=== PATIENT | male | born 1930 | race Caucasian/White ===

== ENCOUNTER 2018-08-25 13:14 | Inpatient (IN) | payer MEDICARE ==
[2018-08-25] MEDS ORDERED: Aspirin 325 MG TAB ONE (14:04)
[2018-08-25] MEDS ORDERED: Aspirin 300 MG Suppository ONE (14:35)
[2018-08-25] MEDS ORDERED: Artificial Tears 18 DROP/0.9 ML EA EYE PRN (15:29)
[2018-08-25] MEDS ORDERED: Diabetic Tussin 200 MG/10 ML UDCUP PO PRN (15:29)
[2018-08-25] MEDS ORDERED: Bisacodyl 5 MG TAB PO PRN (15:29)
[2018-08-25] MEDS ORDERED: Sodium Chloride 0.65% Nasal 44 ML BOT EA NARE PRN (15:29)
[2018-08-25] MEDS ORDERED: Loperamide HCl 2 MG CAP PO PRN (15:29)
[2018-08-25] MEDS ORDERED: hydrALAZINE 20 MG/ML VIAL SLOW IVP PRN (15:29)
[2018-08-25] MEDS ORDERED: Senokot S 8.6-50 MG TAB PO PRN (15:29)
[2018-08-25] MEDS ORDERED: Bisacodyl 10 MG SUPP PR PRN (15:29)
[2018-08-25] MEDS ORDERED: Ondansetron PF 4 MG/2 ML Vial IVP PRN (15:29)
[2018-08-25] MEDS ORDERED: Eucerin (Mineral Oil/Petrolatum,White) 30 gm Jar TOP PRN (15:29)
[2018-08-25] MEDS ORDERED: Acetaminophen 650 MG Suppository PR PRN (15:29)
[2018-08-25] MEDS ORDERED: Ondansetron ODT 4 MG TAB PO PRN (15:29)
[2018-08-25] MEDS ORDERED: Acetaminophen 325 MG TAB PO PRN (15:29)
[2018-08-25] MEDS ORDERED: HYDROcodone/Acetaminophen 5/325 mg Tablet PO PRN (15:29)
--- NOTE | 2018-08-25 15:50 | HP ---
PRIMARY CARE PHYSICIAN: Farrukh Mccracken MD REASON FOR ADMISSION: Transferred from [facility] for acute CVA. HISTORY OF PRESENT ILLNESS: An 88-year-old male, who has underlying history of hypertension, atrial fibrillation, who was initially evaluated at [facility] Emergency Room. The patient was normal this morning at 10:30, he fell down all of suddenly when he was talking to family member and then he was not able to speak and he was not able to lift his left upper and lower extremity. He was taken to local emergency room at 11:08 by paramedics. He was evaluated there. He had CT of brain, which was negative for any acute intracranial process. The patient had CT angiography, which showed right carotid occluded and left carotid 96% to 99% occlusion. His routine blood test was unremarkable. As per report, the patient is not on any chronic anticoagulation therapy. As per report, the patient started improving neurologically and ER doctor spoke with Dr. Forbes and the patient was not a candidate for tPA. As the patient has carotid occlusion, Dr. Farrukh Davies was also notified from our emergency room and as per him, no need of doing acute intervention. When I saw this patient at that time, the patient does have left-sided neglect. He still has a slurred speech and he has dense upper and lower extremity weakness on the left side. Family member is present. Before all this, the patient was completely independent. He was able to do all routine activities of his life. He was only taking aspirin for his atrial fibrillation. PAST MEDICAL HISTORY: Atrial fibrillation, hypertension, prostate disease. PAST SURGICAL HISTORY: Reviewed and negative. PAST PSYCHIATRIC HISTORY: Reviewed and negative. SOCIAL HISTORY: The patient is . He lives at home with family. No history of tobacco, alcohol, or illicit drug abuse. FAMILY HISTORY: No strong family history of premature coronary artery disease, stroke, or cancer. ALLERGIES: NO KNOWN DRUG ALLERGY. CURRENT HOME MEDICATIONS: 1. Coreg 6.25 mg b.i.d. 2. Aspirin 81 mg p.o. daily. 3. Flomax 0.4 mg p.o. daily. REVIEW OF SYSTEMS: CONSTITUTIONAL: Negative for weight loss or gain, ability to conduct usual activities. SKIN: Negative for rash, itching. EYES: Negative for double vision, pain. ENT/MOUTH: Negative for nose bleeding, neck stiffness, pain, tenderness. CARDIOVASCULAR: Negative for palpitations, dyspnea on exertion, orthopnea. RESPIRATORY: Negative for shortness of breath, wheezing, cough, hemoptysis, fever or night sweats. GASTROINTESTINAL: Negative for poor appetite, abdominal pain, heartburn, nausea, vomiting, constipation, or diarrhea. GENITOURINARY: Negative for urgency, frequency, dysuria, nocturia. MUSCULOSKELETAL: Negative for pain, swelling. NEUROLOGIC/PSYCHIATRIC: Negative for anxiety, depression. ALLERGY/IMMUNOLOGIC: Negative for skin rash, bleeding tendency. Please see my HPI for pertinent positive and negative, all other review of systems reviewed and negative. EMERGENCY ROOM COURSE: Reviewed. The patient is given aspirin 325 mg. PHYSICAL EXAMINATION: VITAL SIGNS: Currently blood pressure 176/118, pulse 93 and irregular, respiratory rate 18, temperature 98.0, saturation 99% on room air. Weight not measured yet. GENERAL: The patient is currently alert, awake, follows simple command, no obvious acute distress. HEENT: Head normocephalic and atraumatic. Eyes: Pupils round, reactive to light. Extraocular muscle intact. ENT: Oropharynx within normal limits. Moist mucous membranes. No oral lesion. No pharyngeal erythema. No exudate. NECK: Supple. No JVD. No thyromegaly. No carotid bruit. No jugular venous distention. LUNGS: Clear to auscultation without any rhonchi or rales. CARDIAC: S1 and S2, irregular. No murmur. No gallop. No rub. ABDOMEN: Soft. Bowel sounds present. Nontender. Nondistended. No organomegaly. No mass. No suprapubic tenderness. BACK: Unremarkable. No CVA tenderness. EXTREMITIES: Upper extremity: Passive movement of all joints are normal. Lower extremity: No edema. Good distal pulsation. SKIN: No skin rash. HEMATOLOGICAL SYSTEM: No lymphadenopathy. NEUROLOGIC: The patient does have left-sided facial droop, left-sided neglect, sensory deficit as well as motor deficit with power almost 1/5 on both upper and lower extremity with dysarthria, plantar extensor on the left side, right side within normal limits. SIGNIFICANT LABORATORY DATA: CBC: WBC 7.7, hemoglobin 11.8, platelet 213. INR 1.0. BMP: Sodium 140, potassium 4.5, chloride 107, carbon dioxide 23, anion gap 14, BUN 32.6, creatinine 1.5, glucose 102, calcium 9.36. LFT: AST 18, ALT 15, alkaline phosphatase 73, albumin 4.1. CK 51, CK-MB 1.5, troponin less than 0.010. CT brain done, negative for any acute intracranial process. CT angiography did show right carotid occlusion and left carotid almost 96% to 99% occlusion. Chest x-ray, no acute cardiopulmonary process. ASSESSMENT AND PLAN: 1. Acute right-sided MCA territory cerebrovascular accident. This patient has left-sided neglect, left-sided upper and lower extremity weakness, dysarthria, facial droop, as well as plantar extensor on the left side, all consistent with acute cerebrovascular accident, most likely explained by his underlying history of chronic atrial fibrillation and not on anticoagulation therapy as well as bilateral carotid stenosis. The patient has 100% occlusion of the right internal carotid artery. As per Neurosurgeon, the patient was deemed not a good candidate for tPA therapy. At this point, the patient will be admitted to Stroke Floor. PT, OT, Speech Therapy will be consulted. Neurology will be consulted. The patient will need chronic anticoagulation therapy for his underlying atrial fibrillation. We will continue with aspirin 325 mg p.o. daily. We will start Lipitor 40 mg p.o. at bedtime. The patient will need eventually rehab placement. Diet will be initiated when the patient is successful with bedside swallow evaluation. The patient will need Speech Therapy. We will monitor on telemetry floor. We will obtain MRI brain and echocardiography as a part of stroke workup. We will also check homocysteine, RPR tomorrow and we will also check lipid profile tomorrow. Plan of care extensively discussed with the family member. 2. Chronic atrial fibrillation, rate controlled. The patient will need long-term anticoagulation therapy. We will wait for Neurology and then we will consider starting Eliquis therapy before discharge. Meanwhile, we will continue with aspirin 325 mg p.o. daily. 3. Hypertension. Our goal is to keep blood pressure around 160 to 170s. If blood pressure is super high, then we will consider using p.r.n. basis blood pressure medication as needed only. We will continue Coreg 6.25 mg p.o. b.i.d. as per home dosage. 4. Benign enlargement of prostate. We will continue Flomax 0.4 mg p.o. daily. 5. Chronic kidney disease, stage 3. We will monitor renal function. We will repeat labs tomorrow. 6. Deep venous thrombosis prophylaxis. Lovenox 40 mg subcu daily. 7. Gastrointestinal prophylaxis. Pepcid 20 mg p.o. b.i.d. CODE STATUS: The patient is full code. The patient's is surrogate decision maker. DISPOSITION PLAN: Based on clinical course, we are expecting the patient's stay in hospital more than 2 midnights. Plan of care discussed with the patient and family member at bedside in the emergency room and answered all their questions. Job ID: [id number]
[2018-08-25] MEDS: Sodium Chloride 0.9% 1,000 ML IV SCH (17:40)
[2018-08-25 18:02] VITALS: BMI 25.7
[2018-08-25] MEDS: Carvedilol 6.25 MG TAB PO SCH (18:41)
[2018-08-25] MEDS ORDERED: Prevnar 13-Val Conj/PF 0.5 ML SYRINGE IM ONE (21:00)
[2018-08-25] MEDS: Atorvastatin Calcium 40 MG TAB PO SCH (21:52)
[2018-08-25] MEDS: Famotidine/PF 20 mg/2ml Vial SLOW IVP SCH (21:53)
[2018-08-25] MEDS: Famotidine 20 MG TAB PO SCH (21:53)
--- NOTE | 2018-08-25 23:28 | CON ---
DATE OF CONSULTATION: HISTORY OF PRESENT ILLNESS: Mr. Cr is an 88-year-old gentleman who presented to the [place] ER today with slurred speech and hemiparesis on the left side. He has had some improvement in his leg motor function, but the arm is still hemiparetic. His speech remains slurred. He has a history of chronic atrial fibrillation. He has not been on any anticoagulation due to the patient's refusal to take it in the past. There is a report from both Dr. Cooley and from the emergency department of CT angiogram of the neck showing various degrees of carotid disease-an occluded right carotid and a greater than 90% left carotid. The films are currently unavailable for me to see in [employer] or inside of [facility]. In discussion with the patient's family, he has no history of stroke. He has no history of cardiac disease other than chronic atrial fibrillation. He has no peripheral vascular history. Currently, he is resting on the stroke unit without complaint. PAST MEDICAL HISTORY: Chronic atrial fibrillation. PAST SURGICAL HISTORY: None. CURRENT MEDICATIONS: Aspirin 81 mg b.i.d. ALLERGIES: NONE. REVIEW OF SYSTEMS: Not performed. PHYSICAL EXAMINATION: GENERAL: This is an elderly gentleman, resting comfortably on the stroke unit without current complaint. VITAL SIGNS: Heart rate is 90, blood pressure is 170/110. HEENT: Sclerae nonicteric. Pupils are equal and round bilaterally. NECK: Supple. There is no adenopathy. I cannot auscultate a bruit in either neck. CHEST: Clear bilaterally. HEART: Rhythm is irregularly irregular. ABDOMEN: Soft and nontender. EXTREMITIES: No edema. VASCULAR: He has palpable radial and femoral pulses bilaterally. ASSESSMENT AND PLAN: I need to review his films. I will check with Radiology and see if they have access here that I can not obtain and will discuss the findings and plans with the family at that time. Addendum: I reviewed his CTA with Dr Burgos in radiology. Right ICA is occluded into the skull. LICA is critically stenosed at the bifurcation with only an atretic ICA present from the bulb into the skull. He has non surgical disease. He should be managed on aspirin for his cerebrovascular disease, and a discussion with the family should be made in regards to anticoagulation for his chronic atrial fibrillation Job ID: [id number] [facility]
[2018-08-26 02:06] LABS: Bilirubin Negative (Negative); Blood, Urine Negative (Negative); Clarity CLEAR (Clear); Glucose, Urine (Dipstick) Negative (Negative); Leukocyte Negative (Negative); Nitrite Negative (Negative); Protein, Urine (Dipstick) Negative (Neg-Trace); Specific Gravity, Urine 1.031 (1.002-1.036); Urobilinogen 0.2 mg/dL (0.2-1.0)
[2018-08-26 05:12] LABS: #Eosinphils 0.1 thou/uL (0.0-0.7); #Monocytes 0.8 thou/uL (0.11-0.59); #Neutrophils 8.9 thou/uL (1.40-6.50); %Basophils 0.3 % (0.0-1.0); %Eosinophils 0.9 % (0.0-10.0); %Lymphocytes 16.7 % (21.0-51.0); %Monocytes 6.9 % (0.0-10.0); %Neutrophils 75.2 % (42.0-75.0); Hemoglobin 12.5 g/dL (14.0-18.0); Mean Corpuscular HGB CONC 32.5 g/dL (32.0-36.0); Mean Corpuscular Hemoglobin 29.8 pg (27.0-31.0); Mean Corpuscular Volume 91.7 fL (78.0-98.0); Mean Platelet Volume 7.2 fL (7.4-10.4); Platelet Count 231 thou/uL (130-400); RBC Distribution Width 12.7 % (11.5-14.5); Red Blood Cell (RBC) Count 4.21 mill/uL (4.70-6.10); White Blood Cell (WBC) Count 11.8 thou/uL (4.8-10.8)
[2018-08-26 05:17] LABS: Prothrombin Time 13.4 SEC (12.0-14.7)
[2018-08-26 05:42] LABS: ALT (SGPT) 13 U/L (8-55); AST (SGOT) 20 U/L (5-34); Albumin 4.1 g/dL (3.4-4.8); Alkaline Phosphatase 73 U/L (40-150); Anion Gap 15 mmol/L (10-20); BUN (Urea Nitrogen) 27 mg/dL (8.4-25.7); Bilirubin, Total 0.8 mg/dL (0.2-1.2); Calc. Creatinine Clearance 42 mL/min (70-130); Calcium 9.7 mg/dL (7.8-10.44); Carbon Dioxide 22 mmol/L (23-31); Cardiac Risk 4.1 (Less than 4.5); Chloride 105 mmol/L (98-107); Cholesterol 236 mg/dl (< 200 Desired); Estimated GFR-MDRD 55; Glucose 112 mg/dL (83-110); HDL Cholesterol 58 mg/dL (>60 Neg Risk); LDL Cholesterol, Calculated 163 mg/dL; Potassium 3.8 mmol/L (3.5-5.1); Protein, Total 7.1 g/dL (5.8-8.1); Sodium 138 mmol/L (136-145); Triglycerides 77 mg/dL (Less than 150)
[2018-08-26 06:18] LABS: Syphilis Antibody Nonreactive (Nonreactive); Syphilis Antibody Index 0.05 S/CO (<1.00 Non-Reactive)
[2018-08-26] MEDS: Aspirin 300 MG Suppository PR SCH (08:46)
[2018-08-26] MEDS: Enoxaparin Sodium 40 MG/0.4 ML SYRINGE SC SCH (08:47)
[2018-08-26] MEDS: Carvedilol 6.25 MG TAB PO SCH ×2 (08:47→14:57)
[2018-08-26] MEDS: Tamsulosin HCl 0.4 MG CAP PO SCH (08:48)
[2018-08-26] MEDS: Aspirin 325 MG TAB PO SCH (08:48)
--- NOTE | 2018-08-26 10:21 | PDOC.PN ---
- Subjective Encounter Start Date: 08/26/18 Encounter Start Time: 09:00 -: old records requested/rev pt has improvement in his left side weakness, family bedside Patient seen and examined. No new complaints. No overnight events - Objective Resuscitation Status - Order Detail: 08/25/18 14:33 Resuscitation Status Routine Resuscitation Status: FULL: Full Resuscitation MAR Reviewed: Yes Vital Signs & Weight: Vital Signs (12 hours) Temp Pulse Resp BP BP Pulse Ox 08/26/18 08:47 159/80 H 08/26/18 08:00 97.9 F 88 14 159/80 H 97 08/26/18 07:10 95 08/26/18 03:55 98.5 F 102 H 20 158/86 H 97 08/26/18 00:20 93 191/106 H 08/25/18 23:20 97.9 F 103 H 20 191/106 H 95 Weight Weight 159 lb 6 oz I&O: 08/25/18 08/26/18 08/27/18 06:59 06:59 06:59 Intake Total 600 Output Total 800 Balance -200 Result Diagrams: 08/26/18 04:47 08/26/18 04:47 EKG Reviewed by me: Yes (afib) Phys Exam - Physical Examination Constitutional: NAD HEENT: PERRLA, moist MMs, sclera anicteric Neck: no JVD, supple Respiratory: no wheezing, no rales, no rhonchi Cardiovascular: no significant murmur, irregular Gastrointestinal: soft, non-tender, no distention, positive bowel sounds Musculoskeletal: no edema, pulses present left side 3/5 and right side normal, 7th umn palsy noted, dysarthria Lymphatic: no nodes Psychiatric: normal affect, A&O x 3 Skin: no rash, normal turgor Dx/Plan (1) Acute right MCA stroke Code(s): I63.511 - CEREB INFRC D/T UNSP OCCLS OR STENOS OF RIGHT MID CEREB ART Status: Acute (2) BPH (benign prostatic hyperplasia) Code(s): N40.0 - BENIGN PROSTATIC HYPERPLASIA WITHOUT LOWER URINRY TRACT SYMP Status: Chronic (3) Carotid stenosis Code(s): I65.29 - OCCLUSION AND STENOSIS OF UNSPECIFIED CAROTID ARTERY Status : Chronic Qualifiers: Laterality: bilateral Qualified Code(s): I65.23 - Occlusion and stenosis of bilateral carotid arteries (4) Chronic atrial fibrillation Code(s): I48.2 - CHRONIC ATRIAL FIBRILLATION Status: Chronic (5) CKD (chronic kidney disease) stage 3, GFR 30-59 ml/min Code(s): N18.3 - CHRONIC KIDNEY DISEASE, STAGE 3 (MODERATE) Status: Chronic (6) Dyslipidemia Code(s): E78.5 - HYPERLIPIDEMIA, UNSPECIFIED Status: Chronic (7) Hypertension Code(s): I10 - ESSENTIAL (PRIMARY) HYPERTENSION Status: Chronic - Plan cont current plan of care, plan discussed w/ family, PT/OT, social work lecturer, speech therapy, DVT proph w/lovenox * continue aspirin, lipitor, coreg * he will need chronic anticoagulation before discharge * risk and benefit discussed about anticoagulation and afib * neurology will see * today MRI, echo * discussed with family bedside * medication reviewed as below * symptomatic treatment. Review of Systems - Review of Systems Constitutional: negative: fever, chills, sweats, weakness, malaise, other Eyes: negative: Pain, Vision Change, Conjunctivae Inflammation, Eyelid Inflammation, Redness, Other ENT: negative: Ear Pain, Ear Discharge, Nose Pain, Nose Discharge, Nose Congestion, Mouth Pain, Mouth Swelling, Throat Pain, Throat Swelling, Other Respiratory: negative: Cough, Dry, Shortness of Breath, Hemoptysis, SOB with Excertion, Pleuritic Pain, Sputum, Wheezing Cardiovascular: negative: chest pain, palpitations, orthopnea, paroxysmal nocturnal dyspnea, edema, light headedness, other Gastrointestinal: negative: Nausea, Vomiting, Abdominal Pain, Diarrhea, Constipation, Melena, Hematochezia, Other Genitourinary: negative: Dysuria, Frequency, Incontinence, Hematuria, Retention , Other Musculoskeletal: negative: Neck Pain, Shoulder Pain, Arm Pain, Back Pain, Hand Pain, Leg Pain, Foot Pain, Other Skin: negative: Rash, Lesions, [place], Bruising, Other Neurological: Weakness, Change in Speech. negative: Numbness, Incoordination, Confusion, Seizures, Other - Medications/Allergies Allergies/Adverse Reactions: Allergies Allergy/AdvReac Type Severity Reaction Status Date / Time No Known Drug Allergies Allergy Verified 08/25/18 16:26 Medications: Current Medications Acetaminophen (Tylenol) 650 mg PO Q4H PRN PRN Reason: Headache/Fever/Mild Pain (1-3) Acetaminophen (Tylenol) 650 mg MS Q4H PRN PRN Reason: Headache/Fever/Mild Pain (1-3) Hydrocodone Bitart/Acetaminophen ([place] 5/325) 1 tab PO Q4H PRN PRN Reason: Moderate Pain (4-6) Artificial Tears (Tears Naturale) 2 drop EA EYE PRN PRN PRN Reason: Dry Eyes Aspirin (Aspirin) 300 mg MS DAILY [facility] Last Admin: 08/26/18 08:46 Dose: Not Given Aspirin (Aspirin) 325 mg PO DAILY [facility] Last Admin: 08/26/18 08:48 Dose: 325 mg Atorvastatin Calcium (Lipitor) 40 mg PO HS [facility] Last Admin: 08/25/18 21:52 Dose: 40 mg Bisacodyl (Dulcolax) 10 mg MS DAILYPRN PRN PRN Reason: Constipation Bisacodyl (Dulcolax) 10 mg PO DAILYPRN PRN PRN Reason: Constipation Carvedilol (Coreg) 6.25 mg PO BID-[facility] Last Admin: 08/26/18 08:47 Dose: 6.25 mg Enoxaparin Sodium (Lovenox) 40 mg SC 0900 [facility] Last Admin: 08/26/18 08:47 Dose: 40 mg Famotidine (Pepcid) 20 mg SLOW IVP Q24HR [facility] Last Admin: 08/25/18 21:53 Dose: 20 mg Famotidine (Pepcid) 20 mg PO Q24HR [facility] Last Admin: 08/25/18 21:53 Dose: Not Given Guaifenesin (Robitussin Sf) 200 mg PO Q4H PRN PRN Reason: Cough Hydralazine HCl (Apresoline) 10 mg SLOW IVP Q4H PRN PRN Reason: SBP > 180 and HR < 70 Last Admin: 08/26/18 00:20 Dose: 10 mg Sodium Chloride (Normal Saline 0.9%) 1,000 mls @ 50 mls/hr IV .Q20H [facility] Last Admin: 08/25/18 17:40 Dose: 1,000 mls Loperamide HCl (Imodium) 2 mg PO PRN PRN PRN Reason: Diarrhea/Loose Stools Mineral Oil/White Petrolatum (Eucerin Cream) 0 gm TOP BIDPRN PRN PRN Reason: Dry Skin Ondansetron HCl (Zofran Odt) 4 mg PO Q6H PRN PRN Reason: Nausea/Vomiting Ondansetron HCl (Zofran) 4 mg IVP Q6H PRN PRN Reason: Nausea/Vomiting Senna/Docusate Sodium (Senokot S) 2 tab PO BID PRN PRN Reason: Constipation Sodium Chloride ([place] Nasal [place] 0.65%) 0 ml EA NARE QIDPRN PRN PRN Reason: Nasal Congestion Sodium Chloride (Flush - Normal Saline) 10 ml IVF PRN PRN PRN Reason: Saline Flush Tamsulosin HCl (Flomax) 0.4 mg PO DAILY [facility] Last Admin: 08/26/18 08:48 Dose: 0.4 mg
[2018-08-26] MEDS: Sodium Chloride 0.9% 1,000 ML IV SCH (12:58)
--- NOTE | 2018-08-26 14:04 | MRI ---
MRI BRAIN: Date: 08/26/18 PROVIDED CLINICAL HISTORY: Stroke, generalized weakness. FINDINGS: Comparison with CT brain dated 08/26/18. There is restricted diffusion involving the right lentiform nucleus, right caudate, and right interna l capsule. There is patchy restricted diffusion present within the cortex of the right frontal and pa rietal regions in the distribution of the right middle cerebral artery. There are punctate foci of bl ooming on the gradient sequence in the region of the caudate infarct. The ventricular system appears normal. There is no mass effect or midline shift. There is absence of normal flow-related signal void involving the left internal carotid artery. Appropriate flow-voids are seen from the remainder of th e major intracranial vessels. The extracranial soft tissues and calvarial marrow signal appear unremarkable. IMPRESSION: 1. Findings compatible with recent infarction in the distribution of the right middle cerebral arter y as described above. Blooming artifact associated with caudate infarction could reflect petechial mi crohemorrhage. 2. Absence of flow-related signal within the left ICA, compatible with occlusion. POS: YOOK
--- NOTE | 2018-08-26 15:52 | CON ---
DATE OF CONSULTATION: 08/26/2018 CHIEF COMPLAINT: Possible CVA. HISTORY OF PRESENT ILLNESS: The patient's gave the medical history. His son was there during the event. The patient was picking up a towel from the floor and fell down. He did not pass out. He was helped and he was going to finish what he was doing. He kind of felt he was pacing around and then they helped him sit down and they saw his face droop. After they went to the ER is when he developed left-sided weakness. Due to improvement in his weakness, no IV tPA was given per chart. In the mornings, he is now able to lift his left arm. Yesterday, he could not move his arm much and he had improvement in his left leg weakness while in the ER itself. PREVIOUS MEDICAL HISTORY: Prostate cancer for several years. He has been on injections every 6 months. He also has atrial fibrillation. Benign prostatic hypertrophy and he has cataracts and macular degeneration as well. CURRENT MEDICATIONS: He takes, 1. Coreg. 2. Aspirin. 3. Tamsulosin. PAST SURGICAL HISTORY: None. FAMILY HISTORY: Father at 89 following an SD. He had irregular heart rate. He has four brothers and five sisters. Two brothers and a sister had CVA. Mother at 94. SOCIAL HISTORY: He is a retired [employer]. He was in [employer] and he is a retired yan. He lives with his at home. REVIEW OF SYSTEMS: PULMONARY: Normal. CARDIAC: Positive for irregular heart rate. GENITOURINARY: Positive for prostate problems and increased frequency of urination. GASTROINTESTINAL: Negative for any diarrhea, vomiting. DERMATOLOGIC: Negative. LABORATORY DATA: His current laboratory workup shows white count 11.8, hemoglobin 12.5, hematocrit 38.6, platelet count is 231. Sodium 138, potassium 3.8, chloride 105, bicarb 22, BUN 27, creatinine 1.25, cholesterol 236, LDL 163, HDL 58, homocysteine 7.71. Syphilis antibodies are negative. His CT of the head report was obtained from the nurse and it was read out to me sulcal prominence. No intracranial hemorrhage. No acute stroke and sulcal prominence is consistent with age. He had CT angiogram, which showed right ICA stenosis of 100%, left ICA greater than 19% stenosis. His MRI scan of the brain was pending initially this morning. At the time of this dictation, it has been reported and the MRI shows recent infarction in the distribution of right middle cerebral artery with restricted diffusion involving right lentiform nucleus, right cardiac and right internal capsule. PHYSICAL EXAMINATION: VITAL SIGNS: Blood pressure is 159/80, pulse rate is 88, temperature 97.9. GENERAL APPEARANCE: Well-built, well-nourished gentleman, who appears comfortable. CHEST: Clear vesicular breathing. CARDIOVASCULAR: S1, S2 heard. No murmurs. ABDOMEN: Soft. NEUROLOGICAL EXAMINATION: He was oriented to time, not to place, but oriented to person. Cranial nerves, pupils are 3 mm bilaterally, reactive to light and he has normal sensation of face bilaterally. Facial droop on the left side and tongue midline. Motor bulk normal. Tone normal. Strength is 5/5 on the right side in upper and lower extremities; the left side, 3/5 proximal and distal 1/5 in the left upper extremity. Left lower extremity 3/5 bilaterally in distal and proximal muscle groups. Muscle groups tested on deltoid, biceps, triceps, wrist extension and flexion, finger extension and flexion bilaterally. Sensory exam, normal to touch and proprioception was difficult to evaluate. Cerebellar, normal [id number] on the left side and overall, he seems to be somewhat sleepy during this visit and looks a bit tired. IMPRESSION: The patient is an 88-year-old man with history of a left-sided weakness yesterday and he has difficulties with his prostate and atrial fibrillation at baseline and on CT angiogram, which may be concerning that he has bilateral ICA stenosis and now based on the MRI, he has right MCA occlusion causing his left-sided face, arm, leg weakness. This is all likely due to significant cerebrovascular disease. At this time, his examination shows left-sided weakness and left facial droop consistent with his event in the right MCA. TREATMENT RECOMMENDATIONS: I would note that Vascular Surgery was consulted and Dr. Davies has stated this patient is not a surgical candidate. He will probably need long-term anticoagulation for his cardiac status. Please repeat the CT within [address] remains stable, we can consider anticoagulation. Please consult Cardiology as well on this patient. Neurology will see him as needed. Job ID: [id number]
[2018-08-26] MEDS: Atorvastatin Calcium 40 MG TAB PO SCH (20:32)
[2018-08-26] MEDS: Famotidine 20 MG TAB PO SCH (20:33)
[2018-08-26] MEDS: Famotidine/PF 20 mg/2ml Vial SLOW IVP SCH (20:33)
[2018-08-27] MEDS ORDERED: Albuterol Sulfate 1.25 MG/3 ML NEB ONE (05:49)
[2018-08-27] MEDS: Sodium Chloride 0.9% 1,000 ML IV SCH ×2 (06:08→10:43)
[2018-08-27 07:22] LABS: #Eosinphils 0.1 thou/uL (0.0-0.7); #Lymphocytes 2.5 thou/uL (1.20-3.40); #Monocytes 0.9 thou/uL (0.11-0.59); #Neutrophils 5.2 thou/uL (1.40-6.50); %Basophils 0.5 % (0.0-1.0); %Eosinophils 1.6 % (0.0-10.0); %Lymphocytes 28.5 % (21.0-51.0); %Monocytes 9.8 % (0.0-10.0); %Neutrophils 59.6 % (42.0-75.0); Hemoglobin 11.4 g/dL (14.0-18.0); Mean Corpuscular HGB CONC 32.7 g/dL (32.0-36.0); Mean Corpuscular Hemoglobin 29.7 pg (27.0-31.0); Mean Corpuscular Volume 90.9 fL (78.0-98.0); Mean Platelet Volume 7.2 fL (7.4-10.4); Platelet Count 203 thou/uL (130-400); RBC Distribution Width 12.5 % (11.5-14.5); Red Blood Cell (RBC) Count 3.85 mill/uL (4.70-6.10); White Blood Cell (WBC) Count 8.7 thou/uL (4.8-10.8)
[2018-08-27 07:42] LABS: Anion Gap 13 mmol/L (10-20); BUN (Urea Nitrogen) 23 mg/dL (8.4-25.7); Calc. Creatinine Clearance 35 mL/min (70-130); Calcium 9.4 mg/dL (7.8-10.44); Carbon Dioxide 24 mmol/L (23-31); Chloride 104 mmol/L (98-107); Estimated GFR-MDRD 44; Glucose 94 mg/dL (83-110); Potassium 4.1 mmol/L (3.5-5.1); Sodium 137 mmol/L (136-145)
[2018-08-27] MEDS: Aspirin 325 MG TAB PO SCH (08:35)
[2018-08-27] MEDS: Carvedilol 6.25 MG TAB PO SCH ×2 (08:35→17:16)
[2018-08-27] MEDS: Tamsulosin HCl 0.4 MG CAP PO SCH (08:35)
[2018-08-27] MEDS: Aspirin 300 MG Suppository PR SCH (08:36)
[2018-08-27] MEDS: Enoxaparin Sodium 40 MG/0.4 ML SYRINGE SC SCH (08:36)
--- NOTE | 2018-08-27 10:19 | PDOC.PN ---
- Subjective Encounter Start Date: 08/27/18 Encounter Start Time: 07:00 Pt has improvement in weakness in leg but still weakness in left upper extremity persists no overnight event, no chest pain, no fever, has limited liquid intake - Objective Resuscitation Status - Order Detail: 08/25/18 14:33 Resuscitation Status Routine Resuscitation Status: FULL: Full Resuscitation MAR Reviewed: Yes Vital Signs & Weight: Vital Signs (12 hours) Temp Pulse Pulse Resp BP BP BP 08/27/18 08:50 98 156/84 H 08/27/18 08:35 171/82 H 08/27/18 08:31 08/27/18 07:36 97.8 F 90 18 171/82 H 08/27/18 04:00 98.3 F 93 16 161/81 H 08/26/18 23:58 99.4 F 71 16 153/71 H Pulse Ox Pulse Ox 08/27/18 08:50 96 08/27/18 08:35 08/27/18 08:31 98 08/27/18 07:36 98 08/27/18 04:00 96 08/26/18 23:58 97 Weight Weight 159 lb 6 oz I&O: 08/26/18 08/27/18 08/28/18 06:59 06:59 06:59 Intake Total 1500 Output Total 2000 Balance -500 Result Diagrams: 08/27/18 06:56 08/27/18 06:56 Radiology Reviewed by me: Yes (MRI, echo report noted) EKG Reviewed by me: Yes (afib) Phys Exam - Physical Examination Constitutional: NAD HEENT: PERRLA, moist MMs, sclera anicteric Neck: no JVD, supple Respiratory: no wheezing, no rales, no rhonchi Cardiovascular: irregular SM+ lower sternal border Gastrointestinal: soft, non-tender, no distention, positive bowel sounds Musculoskeletal: no edema, pulses present left side weakness more on upper extrimity Lymphatic: no nodes Psychiatric: normal affect, A&O x 3 Skin: no rash, normal turgor Dx/Plan (1) Acute right MCA stroke Code(s): I63.511 - CEREB INFRC D/T UNSP OCCLS OR STENOS OF RIGHT MID CEREB ART Status: Acute (2) Moderate tricuspid regurgitation Code(s): I07.1 - RHEUMATIC TRICUSPID INSUFFICIENCY Status: Acute (3) BPH (benign prostatic hyperplasia) Code(s): N40.0 - BENIGN PROSTATIC HYPERPLASIA WITHOUT LOWER URINRY TRACT SYMP Status: Chronic (4) CKD (chronic kidney disease) stage 3, GFR 30-59 ml/min Code(s): N18.3 - CHRONIC KIDNEY DISEASE, STAGE 3 (MODERATE) Status: Chronic (5) Carotid stenosis Code(s): I65.29 - OCCLUSION AND STENOSIS OF UNSPECIFIED CAROTID ARTERY Status : Chronic Qualifiers: Laterality: bilateral Qualified Code(s): I65.23 - Occlusion and stenosis of bilateral carotid arteries (6) Chronic atrial fibrillation Code(s): I48.2 - CHRONIC ATRIAL FIBRILLATION Status: Chronic (7) Dyslipidemia Code(s): E78.5 - HYPERLIPIDEMIA, UNSPECIFIED Status: Chronic (8) Hypertension Code(s): I10 - ESSENTIAL (PRIMARY) HYPERTENSION Status: Chronic - Plan cont current plan of care, plan discussed w/ family, PT/OT, social sciences professor, speech therapy * continue stroke team evaluation * today repeat CT brain as per neurology * will consider elliquis before discharge * will need rehab on discharge * encourage oral intake * medication reviewed as below * symptomatic treatment. * increase coreg * continue IVF today Review of Systems - Review of Systems Eyes: negative: Pain, Vision Change, Conjunctivae Inflammation, Eyelid Inflammation, Redness, Other ENT: negative: Ear Pain, Ear Discharge, Nose Pain, Nose Discharge, Nose Congestion, Mouth Pain, Mouth Swelling, Throat Pain, Throat Swelling, Other Respiratory: negative: Cough, Dry, Shortness of Breath, Hemoptysis, SOB with Excertion, Pleuritic Pain, Sputum, Wheezing Cardiovascular: negative: chest pain, palpitations, orthopnea, paroxysmal nocturnal dyspnea, edema, light headedness, other Gastrointestinal: negative: Nausea, Vomiting, Abdominal Pain, Diarrhea, Constipation, Melena, Hematochezia, Other Genitourinary: negative: Dysuria, Frequency, Incontinence, Hematuria, Retention , Other Musculoskeletal: negative: Neck Pain, Shoulder Pain, Arm Pain, Back Pain, Hand Pain, Leg Pain, Foot Pain, Other Skin: negative: Rash, Lesions, Austyn, Bruising, Other Neurological: Weakness. negative: Numbness, Incoordination, Change in Speech, Confusion, Seizures, Other - Medications/Allergies Allergies/Adverse Reactions: Allergies Allergy/AdvReac Type Severity Reaction Status Date / Time No Known Drug Allergies Allergy Verified 08/25/18 16:26 Medications: Current Medications Acetaminophen (Tylenol) 650 mg PO Q4H PRN PRN Reason: Headache/Fever/Mild Pain (1-3) Acetaminophen (Tylenol) 650 mg [place] Q4H PRN PRN Reason: Headache/Fever/Mild Pain (1-3) Hydrocodone Bitart/Acetaminophen ([place] 5/325) 1 tab PO Q4H PRN PRN Reason: Moderate Pain (4-6) Artificial Tears (Tears Naturale) 2 drop EA EYE PRN PRN PRN Reason: Dry Eyes Aspirin (Aspirin) 300 mg [place] DAILY [facility] Last Admin: 08/27/18 08:36 Dose: Not Given Aspirin (Aspirin) 325 mg PO DAILY [facility] Last Admin: 08/27/18 08:35 Dose: 325 mg Atorvastatin Calcium (Lipitor) 40 mg PO HS [facility] Last Admin: 08/26/18 20:32 Dose: 40 mg Bisacodyl (Dulcolax) 10 mg [place] DAILYPRN PRN PRN Reason: Constipation Bisacodyl (Dulcolax) 10 mg PO DAILYPRN PRN PRN Reason: Constipation Carvedilol (Coreg) 6.25 mg PO BID-[facility] Last Admin: 08/27/18 08:35 Dose: 6.25 mg Enoxaparin Sodium (Lovenox) 40 mg SC 0900 [facility] Last Admin: 08/27/18 08:36 Dose: 40 mg Famotidine (Pepcid) 20 mg SLOW IVP Q24HR [facility] Last Admin: 08/26/18 20:33 Dose: Not Given Famotidine (Pepcid) 20 mg PO Q24HR [facility] Last Admin: 08/26/18 20:33 Dose: 20 mg Guaifenesin (Robitussin Sf) 200 mg PO Q4H PRN PRN Reason: Cough Hydralazine HCl (Apresoline) 10 mg SLOW IVP Q4H PRN PRN Reason: SBP > 180 and HR < 70 Last Admin: 08/26/18 00:20 Dose: 10 mg Loperamide HCl (Imodium) 2 mg PO PRN PRN PRN Reason: Diarrhea/Loose Stools Mineral Oil/White Petrolatum (Eucerin Cream) 0 gm TOP BIDPRN PRN PRN Reason: Dry Skin Ondansetron HCl (Zofran Odt) 4 mg PO Q6H PRN PRN Reason: Nausea/Vomiting Ondansetron HCl (Zofran) 4 mg IVP Q6H PRN PRN Reason: Nausea/Vomiting Senna/Docusate Sodium (Senokot S) 2 tab PO BID PRN PRN Reason: Constipation Sodium Chloride ([place] Nasal [place] 0.65%) 0 ml EA NARE QIDPRN PRN PRN Reason: Nasal Congestion Sodium Chloride (Flush - Normal Saline) 10 ml IVF PRN PRN PRN Reason: Saline Flush Tamsulosin HCl (Flomax) 0.4 mg PO DAILY GUILLERMO Last Admin: 08/27/18 08:35 Dose: 0.4 mg
--- NOTE | 2018-08-27 12:13 | CON ---
DATE OF CONSULTATION: 08/27/2018 REASON FOR CONSULTATION: Need for full anticoagulation. HISTORY OF PRESENT ILLNESS: Mr. Cr is a pleasant 88-year-old white gentleman, who comes to the hospital for symptoms concerning for stroke. MRI confirmed these findings, an MCA distribution CVA. He has chronic atrial fibrillation and has been on Coumadin in the past several years ago, but he has stopped to use and is now refusing Coumadin given how cumbersome this medication is. He never had any bleeding issues or frequent falls to stop the medication. Cardiology is being consulted for further evaluation of this. He was also found to have severe peripheral vascular disease, extracranial with his carotids, one being occluded the other one being severely stenosed but so small that is not a surgical candidate. Currently, Mr. Cr is slowly getting better from his stroke symptoms. PAST MEDICAL HISTORY: 1. Chronic atrial fibrillation. 2. Hypertension. 3. Prostate disease. PAST SURGICAL HISTORY: None. FAMILY HISTORY: No early coronary artery disease. SOCIAL HISTORY: No alcohol, tobacco, or drugs. OUTPATIENT MEDICATIONS: 1. Coreg 6.25 b.i.d. 2. Aspirin 81 a day. 3. Flomax 0.4 mg a day. ALLERGIES: NO KNOWN DRUG ALLERGIES. REVIEW OF SYSTEMS: A 12-point review of systems was done and was found to be negative unless stated in the history of present illness. PHYSICAL EXAMINATION: VITAL SIGNS: Temperature 97.8, pulse 90, respiratory rate 18, sat is 98% on room air, blood pressure 156/84. GENERAL: Awake, alert, and oriented x3. No distress. HEENT: Normocephalic and atraumatic. NECK: Supple. LUNGS: Clear. CARDIOVASCULAR: S1, S2. No S3 or S4. No murmur. Irregularly irregular, heart rate in the 60s. ABDOMEN: Soft. Positive bowel sounds. EXTREMITIES: Trace edema. SKIN: Warm and dry. LABORATORY DATA: Laboratory work was reviewed. CBC with a white count of 8.7, hemoglobin down to 8.4, hematocrit 35, platelet count 203. Coags were normal. Chemistries were unremarkable except for creatinine of 1.25, up to 1.51 today. UA was unremarkable. Serology was negative for syphilis, IgG, IgM antibodies. DIAGNOSTIC DATA: EKG was reviewed. Atrial fibrillation, rate controlled. Echocardiogram was reviewed. He has an EF of 55% to 60% with mild aortic insufficiency, mild to moderate MR, and moderate to severe TR. ASSESSMENT: 1. Chronic atrial fibrillation. 2. Acute cerebrovascular accident. 3. Severe carotid disease. 4. Mild aortic insufficiency. PLAN: 1. He is certainly a candidate for full anticoagulation. I had a long conversation with him and his about why he stopped it and the new options we have and the newer agents that do not require all the monitoring and changing of the doses. He is much more agreeable to getting these new medications as long as they are affordable. We cannot start it just yet secondary to the small amount of hemorrhage is seen on the brain MRI on his current stroke. We will wait at least a month before starting full anticoagulation. Otherwise, he is agreeable to starting Eliquis and finding out if it is going to be covered by his insurance. We will give him a coupon for the first free 30 days and then we will see him back in about a month to see if this is going to be feasible or not. He may opt for just an aspirin eventually. 2. For his PVD, he needs to be on aspirin and statin for life. 3. Currently, blood pressure we have permissive hypertension. However, we will have to control it much better eventually. Thank you for letting me to participate in the care of your patient. We will follow. Job ID: [id number]
--- NOTE | 2018-08-27 16:11 | CT ---
CT BRAIN NONCONTRAST: DATE: 08/27/18 TIME: 1219 hours HISTORY: 88-year-old male with acute stroke follow-up. COMPARISON: Noncontrast CT of 08/25/18. FINDINGS: There is a new finding of cytotoxic edema causing effacement of sulcal markings and loss of salguero-whit e junction, involving right lateral suprasylvian frontal lobe cortex and underlying subcortical white matter. This also involves the entire right basal ganglia and the right caudate head. Small patchy f oci of hyperdensity in the right caudate head correspond to the small amounts of acute hemorrhage in that location noted on the MRI of 08/26/18. There are additional numerous tiny foci of hemorrhage in the right putamen and globus pallidus on that MRI, which are difficult to appreciate on this CT. The cytotoxic edema partially effaces the frontal horn of the right lateral ventricle. Much more superiorly, moderate size region of cytotoxic involvement of a right lateral gyrus is more apparent than the involvement of other areas. This probably represents post central gyrus. A small po rtion of what may be precentral gyrus is also involved. Calvarium is intact. There is no midline shif t. Basal cisterns remain patent. IMPRESSION: 1. Evolving moderate-large acute infarction of the right middle cerebral artery territory involving right frontal lobe and some portions of right parietal lobe. 2. This includes lenticulostriate branch territory involvement of infarction of essentially the enti re right corpus striatum. 3. Small amounts of acute hemorrhagic conversion of the right corpus striatum portion of the infarct ion. [place] POS: UMA
[2018-08-27] MEDS: Famotidine 20 MG TAB PO SCH (21:30)
[2018-08-27] MEDS: Atorvastatin Calcium 40 MG TAB PO SCH (21:30)
[2018-08-28] MEDS: Famotidine/PF 20 mg/2ml Vial SLOW IVP SCH (01:55)
[2018-08-28] MEDS: Aspirin 325 MG TAB PO SCH (09:53)
[2018-08-28] MEDS: Carvedilol 6.25 MG TAB PO SCH ×2 (09:53→17:22)
[2018-08-28] MEDS: Enoxaparin Sodium 40 MG/0.4 ML SYRINGE SC SCH (09:53)
[2018-08-28] MEDS: Tamsulosin HCl 0.4 MG CAP PO SCH (09:53)
[2018-08-28] MEDS: Aspirin 300 MG Suppository PR SCH (09:53)
[2018-08-28] MEDS: Sodium Chloride 0.9% 1,000 ML IV SCH (09:54)
--- NOTE | 2018-08-28 10:10 | PDOC.PN ---
- Subjective Encounter Start Date: 08/28/18 Encounter Start Time: 07:10 Patient seen and examined. No new complaints. No overnight events - Objective Resuscitation Status - Order Detail: 08/25/18 14:33 Resuscitation Status Routine Resuscitation Status: FULL: Full Resuscitation MAR Reviewed: Yes Vital Signs & Weight: Vital Signs (12 hours) Temp Pulse Resp BP BP Pulse Ox 08/28/18 09:53 156/76 H 08/28/18 08:00 98.3 F 81 20 156/99 H 96 08/28/18 04:00 98.6 F 87 18 144/77 H 96 08/28/18 00:00 99.0 F 84 19 151/71 H 95 Weight Weight 159 lb 6 oz I&O: 08/27/18 08/28/18 08/29/18 06:59 06:59 06:59 Intake Total 1500 790 Output Total 2000 900 Balance -500 -110 Result Diagrams: 08/27/18 06:56 08/27/18 06:56 EKG Reviewed by me: Yes (afib) Phys Exam - Physical Examination Constitutional: NAD HEENT: PERRLA, moist MMs, sclera anicteric Neck: no JVD, supple Respiratory: no wheezing, no rales, no rhonchi Cardiovascular: no significant murmur, irregular Gastrointestinal: soft, non-tender, no distention, positive bowel sounds Musculoskeletal: no edema, pulses present left side weakness UE>LE Lymphatic: no nodes Psychiatric: normal affect, A&O x 3 Skin: no rash, normal turgor Dx/Plan (1) Acute right MCA stroke Code(s): I63.511 - CEREB INFRC D/T UNSP OCCLS OR STENOS OF RIGHT MID CEREB ART Status: Acute (2) Moderate tricuspid regurgitation Code(s): I07.1 - RHEUMATIC TRICUSPID INSUFFICIENCY Status: Acute (3) BPH (benign prostatic hyperplasia) Code(s): N40.0 - BENIGN PROSTATIC HYPERPLASIA WITHOUT LOWER URINRY TRACT SYMP Status: Chronic (4) CKD (chronic kidney disease) stage 3, GFR 30-59 ml/min Code(s): N18.3 - CHRONIC KIDNEY DISEASE, STAGE 3 (MODERATE) Status: Chronic (5) Carotid stenosis Code(s): I65.29 - OCCLUSION AND STENOSIS OF UNSPECIFIED CAROTID ARTERY Status : Chronic Qualifiers: Laterality: bilateral Qualified Code(s): I65.23 - Occlusion and stenosis of bilateral carotid arteries (6) Chronic atrial fibrillation Code(s): I48.2 - CHRONIC ATRIAL FIBRILLATION Status: Chronic (7) Dyslipidemia Code(s): E78.5 - HYPERLIPIDEMIA, UNSPECIFIED Status: Chronic (8) Hypertension Code(s): I10 - ESSENTIAL (PRIMARY) HYPERTENSION Status: Chronic - Plan cont current plan of care, plan discussed w/ family, PT/OT, aids social worker * because of haemorrhagic conversion, will need to hold on chronic anticoagulation * medication reviewed as below * symptomatic treatment * cardiology recommendation noted * updated to family. * will dc when arranged rehab Review of Systems - Review of Systems ENT: negative: Ear Pain, Ear Discharge, Nose Pain, Nose Discharge, Nose Congestion, Mouth Pain, Mouth Swelling, Throat Pain, Throat Swelling, Other Respiratory: negative: Cough, Dry, Shortness of Breath, Hemoptysis, SOB with Excertion, Pleuritic Pain, Sputum, Wheezing Cardiovascular: negative: chest pain, palpitations, orthopnea, paroxysmal nocturnal dyspnea, edema, light headedness, other Gastrointestinal: negative: Nausea, Vomiting, Abdominal Pain, Diarrhea, Constipation, Melena, Hematochezia, Other Genitourinary: negative: Dysuria, Frequency, Incontinence, Hematuria, Retention , Other Musculoskeletal: negative: Neck Pain, Shoulder Pain, Arm Pain, Back Pain, Hand Pain, Leg Pain, Foot Pain, Other Skin: negative: Rash, Lesions, Austyn, Bruising, Other - Medications/Allergies Allergies/Adverse Reactions: Allergies Allergy/AdvReac Type Severity Reaction Status Date / Time No Known Drug Allergies Allergy Verified 08/25/18 16:26 Medications: Current Medications Acetaminophen (Tylenol) 650 mg PO Q4H PRN PRN Reason: Headache/Fever/Mild Pain (1-3) Acetaminophen (Tylenol) 650 mg [place] Q4H PRN PRN Reason: Headache/Fever/Mild Pain (1-3) Hydrocodone Bitart/Acetaminophen ([place] 5/325) 1 tab PO Q4H PRN PRN Reason: Moderate Pain (4-6) Artificial Tears (Tears Naturale) 2 drop EA EYE PRN PRN PRN Reason: Dry Eyes Aspirin (Aspirin) 300 mg [place] DAILY [facility] Last Admin: 08/28/18 09:53 Dose: Not Given Aspirin (Aspirin) 325 mg PO DAILY [facility] Last Admin: 08/28/18 09:53 Dose: 325 mg Atorvastatin Calcium (Lipitor) 40 mg PO HS [facility] Last Admin: 08/27/18 21:30 Dose: 40 mg Bisacodyl (Dulcolax) 10 mg [place] DAILYPRN PRN PRN Reason: Constipation Bisacodyl (Dulcolax) 10 mg PO DAILYPRN PRN PRN Reason: Constipation Carvedilol (Coreg) 12.5 mg PO BID-[facility] Last Admin: 08/28/18 09:53 Dose: 12.5 mg Enoxaparin Sodium (Lovenox) 40 mg SC 0900 [facility] Last Admin: 08/28/18 09:53 Dose: 40 mg Famotidine (Pepcid) 20 mg SLOW IVP Q24HR [facility] Last Admin: 08/28/18 01:55 Dose: Not Given Famotidine (Pepcid) 20 mg PO Q24HR [facility] Last Admin: 08/27/18 21:30 Dose: 20 mg Guaifenesin (Robitussin Sf) 200 mg PO Q4H PRN PRN Reason: Cough Hydralazine HCl (Apresoline) 10 mg SLOW IVP Q4H PRN PRN Reason: SBP > 180 and HR < 70 Last Admin: 08/26/18 00:20 Dose: 10 mg Sodium Chloride (Normal Saline 0.9%) 1,000 mls @ 50 mls/hr IV .Q20H [facility] Last Admin: 08/28/18 09:54 Dose: 1,000 mls Loperamide HCl (Imodium) 2 mg PO PRN PRN PRN Reason: Diarrhea/Loose Stools Mineral Oil/White Petrolatum (Eucerin Cream) 0 gm TOP BIDPRN PRN PRN Reason: Dry Skin Ondansetron HCl (Zofran Odt) 4 mg PO Q6H PRN PRN Reason: Nausea/Vomiting Ondansetron HCl (Zofran) 4 mg IVP Q6H PRN PRN Reason: Nausea/Vomiting Senna/Docusate Sodium (Senokot S) 2 tab PO BID PRN PRN Reason: Constipation Sodium Chloride ([place] Nasal [place] 0.65%) 0 ml EA NARE QIDPRN PRN PRN Reason: Nasal Congestion Sodium Chloride (Flush - Normal Saline) 10 ml IVF PRN PRN PRN Reason: Saline Flush Tamsulosin HCl (Flomax) 0.4 mg PO DAILY GUILLERMO Last Admin: 08/28/18 09:53 Dose: 0.4 mg
--- NOTE | 2018-08-28 18:37 | PDOC.CTH ---
Cardiology Progress Note - Subjective No new issues. - Objective Vital Signs Temp Pulse Pulse Pulse Resp BP BP 08/28/18 17:22 121/75 08/28/18 16:00 98.9 F 86 20 08/28/18 12:00 98.8 F 90 20 08/28/18 09:53 156/76 H 08/28/18 08:55 78 83 149/81 H 08/28/18 08:00 98.3 F 81 20 BP BP Pulse Ox 08/28/18 17:22 08/28/18 16:00 121/75 97 08/28/18 12:00 139/86 97 08/28/18 09:53 08/28/18 08:55 150/83 H 08/28/18 08:00 156/99 H 96 Weight 159 lb 6 oz 08/27/18 08/28/18 08/29/18 06:59 06:59 06:59 Intake Total 1500 790 480 Output Total 2000 900 Balance -500 -110 480 - Physical Examination General/Neuro: alert & oriented x3, NAD Neck: no JVD present Lungs: unlabored respirations Heart: other: (Irreg irreg) Abdomen: NT/ND Extremities: other: (no edema) - Telemetry Telemetry Rhythm: Afib HR 90's -110's - Labs Result Diagrams: 08/27/18 06:56 08/27/18 06:56 - Assessment/Plan 1. Acute ischmeic CVA 2. Chrinic Afib 3. Small hemorrhaginc conversion of CVA PLAN: - No antiplatelet or anticoagulation until bleeding resolved, - Would hold off on any aspirin or Eliquis until a repeat scan shows no more evidence of bleeding. Would repeat in 2 week.
[2018-08-28] MEDS: Famotidine 20 MG TAB PO SCH (21:14)
[2018-08-28] MEDS: Atorvastatin Calcium 40 MG TAB PO SCH (21:14)
[2018-08-29] MEDS: Famotidine/PF 20 mg/2ml Vial SLOW IVP SCH ×2 (04:18→20:08)
[2018-08-29] MEDS: Tamsulosin HCl 0.4 MG CAP PO SCH (09:03)
[2018-08-29] MEDS: Carvedilol 6.25 MG TAB PO SCH ×2 (09:03→17:43)
--- NOTE | 2018-08-29 12:46 | PDOC.PN ---
- Subjective Encounter Start Date: 08/29/18 Encounter Start Time: 10:15 Patient seen and examined. No new complaints. No overnight events - Objective Resuscitation Status - Order Detail: 08/25/18 14:33 Resuscitation Status Routine Resuscitation Status: FULL: Full Resuscitation MAR Reviewed: Yes Vital Signs & Weight: Vital Signs (12 hours) Temp Pulse Resp BP BP Pulse Ox 08/29/18 11:49 97.5 F L 85 16 151/65 H 95 08/29/18 09:03 150/88 H 08/29/18 08:00 96 08/29/18 07:45 97.5 F L 79 16 150/88 H 98 08/29/18 04:00 99.4 F 93 19 144/80 H 96 Weight Weight 159 lb 6 oz I&O: 08/28/18 08/29/18 08/30/18 06:59 06:59 06:59 Intake Total 790 480 180 Output Total 900 700 Balance -110 -220 180 Result Diagrams: 08/27/18 06:56 08/27/18 06:56 EKG Reviewed by me: Yes Phys Exam - Physical Examination Constitutional: NAD HEENT: PERRLA, moist MMs, sclera anicteric Neck: no JVD, supple Respiratory: no wheezing, no rales, no rhonchi Cardiovascular: no significant murmur, irregular Gastrointestinal: soft, non-tender, no distention, positive bowel sounds Musculoskeletal: no edema, pulses present left side weakness more on left UE Psychiatric: normal affect, A&O x 3 Skin: no rash, normal turgor Dx/Plan (1) Acute right MCA stroke Code(s): I63.511 - CEREB INFRC D/T UNSP OCCLS OR STENOS OF RIGHT MID CEREB ART Status: Acute (2) Moderate tricuspid regurgitation Code(s): I07.1 - RHEUMATIC TRICUSPID INSUFFICIENCY Status: Acute (3) BPH (benign prostatic hyperplasia) Code(s): N40.0 - BENIGN PROSTATIC HYPERPLASIA WITHOUT LOWER URINRY TRACT SYMP Status: Chronic (4) CKD (chronic kidney disease) stage 3, GFR 30-59 ml/min Code(s): N18.3 - CHRONIC KIDNEY DISEASE, STAGE 3 (MODERATE) Status: Chronic (5) Carotid stenosis Code(s): I65.29 - OCCLUSION AND STENOSIS OF UNSPECIFIED CAROTID ARTERY Status : Chronic Qualifiers: Laterality: bilateral Qualified Code(s): I65.23 - Occlusion and stenosis of bilateral carotid arteries (6) Chronic atrial fibrillation Code(s): I48.2 - CHRONIC ATRIAL FIBRILLATION Status: Chronic (7) Dyslipidemia Code(s): E78.5 - HYPERLIPIDEMIA, UNSPECIFIED Status: Chronic (8) Hypertension Code(s): I10 - ESSENTIAL (PRIMARY) HYPERTENSION Status: Chronic - Plan cont current plan of care, plan discussed w/ family, PT/OT, administrator social welfare * as per cardiology, will hold on aspirin * he will need repeat CT brain in 2 week, if resolution of haemorrhage, will need aspirin and anticoagulation as an outpt basis. * discussed with family Review of Systems - Review of Systems ENT: negative: Ear Pain, Ear Discharge, Nose Pain, Nose Discharge, Nose Congestion, Mouth Pain, Mouth Swelling, Throat Pain, Throat Swelling, Other Respiratory: negative: Cough, Dry, Shortness of Breath, Hemoptysis, SOB with Excertion, Pleuritic Pain, Sputum, Wheezing Cardiovascular: negative: chest pain, palpitations, orthopnea, paroxysmal nocturnal dyspnea, edema, light headedness, other Gastrointestinal: negative: Nausea, Vomiting, Abdominal Pain, Diarrhea, Constipation, Melena, Hematochezia, Other Genitourinary: negative: Dysuria, Frequency, Incontinence, Hematuria, Retention , Other Musculoskeletal: negative: Neck Pain, Shoulder Pain, Arm Pain, Back Pain, Hand Pain, Leg Pain, Foot Pain, Other - Medications/Allergies Allergies/Adverse Reactions: Allergies Allergy/AdvReac Type Severity Reaction Status Date / Time No Known Drug Allergies Allergy Verified 08/25/18 16:26 Medications: Current Medications Acetaminophen (Tylenol) 650 mg PO Q4H PRN PRN Reason: Headache/Fever/Mild Pain (1-3) Acetaminophen (Tylenol) 650 mg [place] Q4H PRN PRN Reason: Headache/Fever/Mild Pain (1-3) Hydrocodone Bitart/Acetaminophen ([place] 5/325) 1 tab PO Q4H PRN PRN Reason: Moderate Pain (4-6) Artificial Tears (Tears Naturale) 2 drop EA EYE PRN PRN PRN Reason: Dry Eyes Atorvastatin Calcium (Lipitor) 40 mg PO HS [facility] Last Admin: 08/28/18 21:14 Dose: 40 mg Bisacodyl (Dulcolax) 10 mg [place] DAILYPRN PRN PRN Reason: Constipation Bisacodyl (Dulcolax) 10 mg PO DAILYPRN PRN PRN Reason: Constipation Carvedilol (Coreg) 12.5 mg PO BID-[facility] Last Admin: 08/29/18 09:03 Dose: 12.5 mg Famotidine (Pepcid) 20 mg SLOW IVP Q24HR [facility] Last Admin: 08/29/18 04:18 Dose: Not Given Famotidine (Pepcid) 20 mg PO Q24HR [facility] Last Admin: 08/28/18 21:14 Dose: 20 mg Guaifenesin (Robitussin Sf) 200 mg PO Q4H PRN PRN Reason: Cough Hydralazine HCl (Apresoline) 10 mg SLOW IVP Q4H PRN PRN Reason: SBP > 180 and HR < 70 Last Admin: 08/26/18 00:20 Dose: 10 mg Loperamide HCl (Imodium) 2 mg PO PRN PRN PRN Reason: Diarrhea/Loose Stools Mineral Oil/White Petrolatum (Eucerin Cream) 0 gm TOP BIDPRN PRN PRN Reason: Dry Skin Ondansetron HCl (Zofran Odt) 4 mg PO Q6H PRN PRN Reason: Nausea/Vomiting Ondansetron HCl (Zofran) 4 mg IVP Q6H PRN PRN Reason: Nausea/Vomiting Senna/Docusate Sodium (Senokot S) 2 tab PO BID PRN PRN Reason: Constipation Sodium Chloride ([place] Nas[place] 0.65%) 0 ml EA NARE QIDPRN PRN PRN Reason: Nasal Congestion Sodium Chloride (Flush - Normal Saline) 10 ml IVF PRN PRN PRN Reason: Saline Flush Last Admin: 08/29/18 09:04 Dose: 10 ml Tamsulosin HCl (Flomax) 0.4 mg PO DAILY [facility] Last Admin: 08/29/18 09:03 Dose: 0.4 mg
--- NOTE | 2018-08-29 18:05 | PDOC.CTH ---
Cardiology Progress Note - Subjective No new issues. Waiting on Rehab bed. - Objective Vital Signs Temp Pulse Resp BP BP Pulse Ox 08/29/18 17:43 143/84 H 08/29/18 15:39 97.2 F L 90 16 116/71 92 L 08/29/18 11:49 97.5 F L 85 16 151/65 H 95 08/29/18 09:03 150/88 H 08/29/18 08:00 96 08/29/18 07:45 97.5 F L 79 16 150/88 H 98 Weight 159 lb 6 oz 08/28/18 08/29/18 08/30/18 06:59 06:59 06:59 Intake Total 790 480 600 Output Total 900 700 Balance -110 -220 600 - Physical Examination General/Neuro: alert & oriented x3, NAD Neck: no JVD present Lungs: CTA, unlabored respirations Heart: RRR Abdomen: NT/ND Extremities: other: (no edema) - Telemetry Telemetry Rhythm: Afib HR 70's - Labs Result Diagrams: 08/27/18 06:56 08/27/18 06:56 - Assessment/Plan 1. Acute ischmeic CVA 2. Chrinic Afib 3. Small hemorrhaginc conversion of CVA PLAN: - No antiplatelet or anticoagulation until bleeding resolved, - Would hold off on any aspirin or Eliquis until a repeat CT scan shows no more evidence of bleeding. Would repeat in 2 week. - Will sign out. - Please call with any questions. - Follow up in the office in 1 month in [place].
[2018-08-29] MEDS: Famotidine 20 MG TAB PO SCH (20:08)
[2018-08-29] MEDS: Atorvastatin Calcium 40 MG TAB PO SCH (20:08)
[2018-08-30] MEDS: Carvedilol 6.25 MG TAB PO SCH ×2 (09:09→18:49)
[2018-08-30] MEDS: Tamsulosin HCl 0.4 MG CAP PO SCH (09:09)
--- NOTE | 2018-08-30 11:45 | PDOC.PN ---
- Subjective Encounter Start Date: 08/30/18 Encounter Start Time: 07:00 Patient seen and examined. No new complaints. No overnight events - Objective Resuscitation Status - Order Detail: 08/25/18 14:33 Resuscitation Status Routine Resuscitation Status: FULL: Full Resuscitation MAR Reviewed: Yes Vital Signs & Weight: Vital Signs (12 hours) Temp Pulse Resp BP BP Pulse Ox 08/30/18 09:09 141/73 H 08/30/18 07:46 97.9 F 85 16 141/73 H 97 08/30/18 04:00 98.6 F 74 18 136/77 97 08/30/18 00:00 98.4 F 78 18 129/59 L 96 Weight Weight 159 lb 6 oz I&O: 08/29/18 08/30/18 08/31/18 06:59 06:59 06:59 Intake Total 480 836 Output Total 700 500 Balance -220 336 Result Diagrams: 08/27/18 06:56 08/27/18 06:56 EKG Reviewed by me: Yes (nsr) Phys Exam - Physical Examination Constitutional: NAD HEENT: PERRLA, moist MMs, sclera anicteric Neck: no JVD, supple Respiratory: no wheezing, no rales, no rhonchi Cardiovascular: no significant murmur, no rub, irregular Gastrointestinal: soft, non-tender, no distention, positive bowel sounds Musculoskeletal: no edema, pulses present left UE weakness Lymphatic: no nodes Psychiatric: normal affect, A&O x 3 Skin: no rash, normal turgor Dx/Plan (1) Acute right MCA stroke Code(s): I63.511 - CEREB INFRC D/T UNSP OCCLS OR STENOS OF RIGHT MID CEREB ART Status: Acute (2) Moderate tricuspid regurgitation Code(s): I07.1 - RHEUMATIC TRICUSPID INSUFFICIENCY Status: Acute (3) BPH (benign prostatic hyperplasia) Code(s): N40.0 - BENIGN PROSTATIC HYPERPLASIA WITHOUT LOWER URINRY TRACT SYMP Status: Chronic (4) CKD (chronic kidney disease) stage 3, GFR 30-59 ml/min Code(s): N18.3 - CHRONIC KIDNEY DISEASE, STAGE 3 (MODERATE) Status: Chronic (5) Carotid stenosis Code(s): I65.29 - OCCLUSION AND STENOSIS OF UNSPECIFIED CAROTID ARTERY Status : Chronic Qualifiers: Laterality: bilateral Qualified Code(s): I65.23 - Occlusion and stenosis of bilateral carotid arteries (6) Chronic atrial fibrillation Code(s): I48.2 - CHRONIC ATRIAL FIBRILLATION Status: Chronic (7) Dyslipidemia Code(s): E78.5 - HYPERLIPIDEMIA, UNSPECIFIED Status: Chronic (8) Hypertension Code(s): I10 - ESSENTIAL (PRIMARY) HYPERTENSION Status: Chronic - Plan cont current plan of care, plan discussed w/ family, PT/OT, clinical social work therapist * will hold aspirin for another 1 or 2 week * start aspirin after repeat imaging in 2 week since last one * await bed availability at rehab * may be swing bed option if family ok * medication reviewed as below * symptomatic treatment. Review of Systems - Review of Systems ENT: negative: Ear Pain, Ear Discharge, Nose Pain, Nose Discharge, Nose Congestion, Mouth Pain, Mouth Swelling, Throat Pain, Throat Swelling, Other Respiratory: negative: Cough, Dry, Shortness of Breath, Hemoptysis, SOB with Excertion, Pleuritic Pain, Sputum, Wheezing Cardiovascular: negative: chest pain, palpitations, orthopnea, paroxysmal nocturnal dyspnea, edema, light headedness, other Gastrointestinal: negative: Nausea, Vomiting, Abdominal Pain, Diarrhea, Constipation, Melena, Hematochezia, Other Genitourinary: negative: Dysuria, Frequency, Incontinence, Hematuria, Retention , Other Musculoskeletal: negative: Neck Pain, Shoulder Pain, Arm Pain, Back Pain, Hand Pain, Leg Pain, Foot Pain, Other - Medications/Allergies Allergies/Adverse Reactions: Allergies Allergy/AdvReac Type Severity Reaction Status Date / Time No Known Drug Allergies Allergy Verified 08/25/18 16:26 Medications: Current Medications Acetaminophen (Tylenol) 650 mg PO Q4H PRN PRN Reason: Headache/Fever/Mild Pain (1-3) Acetaminophen (Tylenol) 650 mg [place] Q4H PRN PRN Reason: Headache/Fever/Mild Pain (1-3) Hydrocodone Bitart/Acetaminophen ([place] 5/325) 1 tab PO Q4H PRN PRN Reason: Moderate Pain (4-6) Artificial Tears (Tears Naturale) 2 drop EA EYE PRN PRN PRN Reason: Dry Eyes Atorvastatin Calcium (Lipitor) 40 mg PO HS [facility] Last Admin: 08/29/18 20:08 Dose: 40 mg Bisacodyl (Dulcolax) 10 mg [place] DAILYPRN PRN PRN Reason: Constipation Bisacodyl (Dulcolax) 10 mg PO DAILYPRN PRN PRN Reason: Constipation Carvedilol (Coreg) 12.5 mg PO BID-[facility] Last Admin: 08/30/18 09:09 Dose: 12.5 mg Famotidine (Pepcid) 20 mg SLOW IVP Q24HR [facility] Last Admin: 08/29/18 20:08 Dose: Not Given Famotidine (Pepcid) 20 mg PO Q24HR [facility] Last Admin: 08/29/18 20:08 Dose: 20 mg Guaifenesin (Robitussin Sf) 200 mg PO Q4H PRN PRN Reason: Cough Hydralazine HCl (Apresoline) 10 mg SLOW IVP Q4H PRN PRN Reason: SBP > 180 and HR < 70 Last Admin: 08/26/18 00:20 Dose: 10 mg Loperamide HCl (Imodium) 2 mg PO PRN PRN PRN Reason: Diarrhea/Loose Stools Mineral Oil/White Petrolatum (Eucerin Cream) 0 gm TOP BIDPRN PRN PRN Reason: Dry Skin Ondansetron HCl (Zofran Odt) 4 mg PO Q6H PRN PRN Reason: Nausea/Vomiting Ondansetron HCl (Zofran) 4 mg IVP Q6H PRN PRN Reason: Nausea/Vomiting Senna/Docusate Sodium (Senokot S) 2 tab PO BID PRN PRN Reason: Constipation Sodium Chloride ([place] Nasal [place] 0.65%) 0 ml EA NARE QIDPRN PRN PRN Reason: Nasal Congestion Sodium Chloride (Flush - Normal Saline) 10 ml IVF PRN PRN PRN Reason: Saline Flush Last Admin: 08/29/18 20:08 Dose: 10 ml Tamsulosin HCl (Flomax) 0.4 mg PO DAILY [facility] Last Admin: 08/30/18 09:09 Dose: 0.4 mg
--- NOTE | 2018-08-30 13:55 | DIS ---
DATE OF ADMISSION: 08/25/2018 DATE OF DISCHARGE: 08/30/2018 PRIMARY CARE PHYSICIAN: Dr. Sánchez Mccracken. DISCHARGE DISPOSITION: Swing bed versus rehab. 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 SECONDARY DISCHARGE DIAGNOSES: Hypertension, dyslipidemia, chronic kidney disease stage 3, chronic atrial fibrillation, carotid stenosis, benign enlargement of prostate, moderate tricuspid regurgitation, moderate tricuspid regurgitation. PRIMARY PROCEDURE/OPERATION: None. RADIOLOGICAL INVESTIGATION: MRI brain showed right MCA artery infarct with hemorrhagic conversion. Repeat CT brain also confirmed hemorrhagic conversion. Echocardiography showed normal EF, moderate tricuspid regurgitation. CT angiography showed carotid stenosis. SIGNIFICANT LABORATORY DATA: WBC 8.7, hemoglobin 11.4, platelet 203. INR 1.0. Sodium 137, potassium 4.1, chloride 104, BUN 23, creatinine 1.51, calcium 9.3. LFT normal. LDL 163. Homocysteine 7.71. Urinalysis normal. Syphilis negative. DISCHARGE MEDICATIONS: 1. Flomax 0.4 mg daily. 2. Pepcid 20 mg p.o. daily. 3. Lipitor 40 mg p.o. at bedtime. 4. Coreg 12.5 mg b.i.d. CONTRAINDICATION: The patient is not given aspirin or any anticoagulant medication, because of hemorrhagic conversion in the MCA territory. These two medications will be started as an outpatient basis after repeat CT brain. CODE STATUS: Full code. INPATIENT GALVANOMETER ASSEMBLER: Neurology was consulted while in the hospital. Cardiology was consulted for atrial fibrillation. CV surgeon was consulted for carotid stenosis. TEST RESULTS PENDING ON DISCHARGE: None. ALLERGIES: NO KNOWN DRUG ALLERGIES. DISCHARGE PLAN: Posthospital, the patient will follow up with Dr. Gonzalez, Dr. Farrukh Davies as instructed. HOSPITAL COURSE: An 88-year-old male, who was admitted by me. Please see my H and P for further detail. The patient was initially evaluated at [facility] for acute CVA symptoms. The patient had CT angiography, which showed right carotid artery occluded and the left carotid 96% to 99% occlusion. Initial CT brain was negative for any stroke, but the patient was having left-sided weakness, dysarthria, and neglect. We did MRI brain, which confirmed right MCA territory infarct. Later on, it showed hemorrhagic conversion. The patient was treated with aspirin while in the hospital. This patient has chronic atrial fibrillation, but he was not on any blood thinner medication and that is why we decided to start anticoagulant therapy before discharge, but as the patient has hemorrhagic conversion and that is why Cardiology recommended to hold aspirin and anticoagulant therapy until repeat CT scan and then it will be decided as an outpatient basis. We discontinued aspirin and DVT prophylaxis while in hospital. His rate was under control. Cardiovascular surgeon recommended medical therapy. During this admission, we started Lipitor high-dose therapy, because of high cholesterol. His blood pressure was well controlled. The patient was needing rehabilitation and that is why, with help of manager rn case, we are arranging rehabilitation placement for PT/OT. The patient is seen and examined at bedside today. Please see my progress note from today for further detail. Paperwork for discharge done and discharge medication reconciliation done. Plan of care discussed with the family member. Job ID: [id number]
[2018-08-30] MEDS: Famotidine 20 MG TAB PO SCH (20:46)
[2018-08-30] MEDS: Atorvastatin Calcium 40 MG TAB PO SCH (20:46)
[2018-08-30] MEDS: Famotidine/PF 20 mg/2ml Vial SLOW IVP SCH (20:47)
[2018-08-31] MEDS: Carvedilol 6.25 MG TAB PO SCH (09:39)
[2018-08-31] MEDS: Tamsulosin HCl 0.4 MG CAP PO SCH (09:39)
--- NOTE | 2018-08-31 10:43 | PDOC.PN ---
- Subjective Encounter Start Date: 08/31/18 Encounter Start Time: 07:00 Patient seen and examined. No new complaints. No overnight events - Objective Resuscitation Status - Order Detail: 08/25/18 14:33 Resuscitation Status Routine Resuscitation Status: FULL: Full Resuscitation MAR Reviewed: Yes Vital Signs & Weight: Vital Signs (12 hours) Temp Pulse Resp BP BP Pulse Ox 08/31/18 09:39 142/66 H 08/31/18 07:39 98.5 F 67 20 142/66 H 98 08/31/18 07:30 96 08/31/18 04:00 97.8 F 65 18 139/64 97 08/31/18 00:00 98.3 F 79 16 141/71 H 98 Weight Weight 159 lb 6 oz I&O: 08/30/18 08/31/18 09/01/18 06:59 06:59 06:59 Intake Total 836 780 300 Output Total 500 700 Balance 336 80 300 Result Diagrams: 08/27/18 06:56 08/27/18 06:56 EKG Reviewed by me: Yes (afib) Phys Exam - Physical Examination Constitutional: NAD HEENT: PERRLA, moist MMs, sclera anicteric Neck: no JVD, supple Respiratory: no wheezing, no rales, no rhonchi Cardiovascular: no significant murmur, irregular Gastrointestinal: soft, non-tender, no distention, positive bowel sounds Musculoskeletal: no edema, pulses present left UE weakness Lymphatic: no nodes Psychiatric: normal affect, A&O x 3 Skin: no rash, normal turgor Dx/Plan (1) Acute right MCA stroke Code(s): I63.511 - CEREB INFRC D/T UNSP OCCLS OR STENOS OF RIGHT MID CEREB ART Status: Acute (2) Moderate tricuspid regurgitation Code(s): I07.1 - RHEUMATIC TRICUSPID INSUFFICIENCY Status: Acute (3) BPH (benign prostatic hyperplasia) Code(s): N40.0 - BENIGN PROSTATIC HYPERPLASIA WITHOUT LOWER URINRY TRACT SYMP Status: Chronic (4) CKD (chronic kidney disease) stage 3, GFR 30-59 ml/min Code(s): N18.3 - CHRONIC KIDNEY DISEASE, STAGE 3 (MODERATE) Status: Chronic (5) Carotid stenosis Code(s): I65.29 - OCCLUSION AND STENOSIS OF UNSPECIFIED CAROTID ARTERY Status : Chronic Qualifiers: Laterality: bilateral Qualified Code(s): I65.23 - Occlusion and stenosis of bilateral carotid arteries (6) Chronic atrial fibrillation Code(s): I48.2 - CHRONIC ATRIAL FIBRILLATION Status: Chronic (7) Dyslipidemia Code(s): E78.5 - HYPERLIPIDEMIA, UNSPECIFIED Status: Chronic (8) Hypertension Code(s): I10 - ESSENTIAL (PRIMARY) HYPERTENSION Status: Chronic - Plan cont current plan of care, plan discussed w/ family, PT/OT, social services analyst * medically stable * medication reviewed as below * symptomatic treatment * await rehab placement * see discharge summery from yesterday. Review of Systems - Review of Systems Eyes: negative: Pain, Vision Change, Conjunctivae Inflammation, Eyelid Inflammation, Redness, Other ENT: negative: Ear Pain, Ear Discharge, Nose Pain, Nose Discharge, Nose Congestion, Mouth Pain, Mouth Swelling, Throat Pain, Throat Swelling, Other Respiratory: negative: Cough, Dry, Shortness of Breath, Hemoptysis, SOB with Excertion, Pleuritic Pain, Sputum, Wheezing Cardiovascular: negative: chest pain, palpitations, orthopnea, paroxysmal nocturnal dyspnea, edema, light headedness, other Gastrointestinal: negative: Nausea, Vomiting, Abdominal Pain, Diarrhea, Constipation, Melena, Hematochezia, Other Genitourinary: negative: Dysuria, Frequency, Incontinence, Hematuria, Retention , Other Musculoskeletal: negative: Neck Pain, Shoulder Pain, Arm Pain, Back Pain, Hand Pain, Leg Pain, Foot Pain, Other Skin: negative: Rash, Lesions, [place], Bruising, Other Neurological: Weakness. negative: Numbness, Incoordination, Change in Speech, Confusion, Seizures, Other - Medications/Allergies Allergies/Adverse Reactions: Allergies Allergy/AdvReac Type Severity Reaction Status Date / Time No Known Drug Allergies Allergy Verified 08/25/18 16:26 Medications: Current Medications Acetaminophen (Tylenol) 650 mg PO Q4H PRN PRN Reason: Headache/Fever/Mild Pain (1-3) Acetaminophen (Tylenol) 650 mg [place] Q4H PRN PRN Reason: Headache/Fever/Mild Pain (1-3) Hydrocodone Bitart/Acetaminophen ([place] 5/325) 1 tab PO Q4H PRN PRN Reason: Moderate Pain (4-6) Artificial Tears (Tears Naturale) 2 drop EA EYE PRN PRN PRN Reason: Dry Eyes Atorvastatin Calcium (Lipitor) 40 mg PO [facility] Last Admin: 08/30/18 20:46 Dose: 40 mg Bisacodyl (Dulcolax) 10 mg [place] DAILYPRN PRN PRN Reason: Constipation Bisacodyl (Dulcolax) 10 mg PO DAILYPRN PRN PRN Reason: Constipation Carvedilol (Coreg) 12.5 mg PO BID-[facility] Last Admin: 08/31/18 09:39 Dose: 12.5 mg Famotidine (Pepcid) 20 mg SLOW IVP Q24HR [facility] Last Admin: 08/30/18 20:47 Dose: Not Given Famotidine (Pepcid) 20 mg PO Q24HR [facility] Last Admin: 08/30/18 20:46 Dose: 20 mg Guaifenesin (Robitussin Sf) 200 mg PO Q4H PRN PRN Reason: Cough Hydralazine HCl (Apresoline) 10 mg SLOW IVP Q4H PRN PRN Reason: SBP > 180 and HR < 70 Last Admin: 08/26/18 00:20 Dose: 10 mg Loperamide HCl (Imodium) 2 mg PO PRN PRN PRN Reason: Diarrhea/Loose Stools Mineral Oil/White Petrolatum (Eucerin Cream) 0 gm TOP BIDPRN PRN PRN Reason: Dry Skin Ondansetron HCl (Zofran Odt) 4 mg PO Q6H PRN PRN Reason: Nausea/Vomiting Ondansetron HCl (Zofran) 4 mg IVP Q6H PRN PRN Reason: Nausea/Vomiting Senna/Docusate Sodium (Senokot S) 2 tab PO BID PRN PRN Reason: Constipation Sodium Chloride ([place] Nasal [place] 0.65%) 0 ml EA NARE QIDPRN PRN PRN Reason: Nasal Congestion Sodium Chloride (Flush - Normal Saline) 10 ml IVF PRN PRN PRN Reason: Saline Flush Last Admin: 08/29/18 20:08 Dose: 10 ml Tamsulosin HCl (Flomax) 0.4 mg PO DAILY [facility] Last Admin: 08/31/18 09:39 Dose: 0.4 mg
[2018-08-31 15:58] VITALS: BP 121/59; TEMP 98.7
--- NOTE | 2018-09-01 22:04 | EKG ---
Test Reason : Blood Pressure : / mmHG Vent. Rate : 084 BPM Atrial Rate : 077 BPM P-R Int : 000 ms QRS Dur : 094 ms QT Int : 380 ms P-R-T Axes : 000 016 -06 degrees QTc Int : 449 ms Atrial fibrillation with premature ventricular or aberrantly conducted complexes Abnormal ECG Confirmed by BALJEET CROWLEY, RAMIRO ([id number]), advertising editor SAL DALAL ([id number] on 09/01/2018 10:03:57 PM Referred By: Confirmed By:RAMIRO DELONG MD
== END 2018-08-31 17:37 | DRG 64 ==
LOC: ERS 13:14 → 2SE 17:16
PROVIDERS: ADMIT Internal Medicine; ATTEND Internal Medicine
DX: I63.511 Cerebral infarction due to unspecified occlusion or stenosis of right middle cerebral artery (principal); I61.8 Other nontraumatic intracerebral hemorrhage; G81.94 Hemiplegia, unspecified affecting left nondominant side; R47.1 Dysarthria and anarthria; R29.810 Facial weakness; I48.2 Chronic atrial fibrillation; I12.9 Hypertensive chronic kidney disease with stage 1 through stage 4 chronic kidney disease, or unspecified chronic kidney disease; N18.3 Chronic kidney disease, stage 3 (moderate); N40.0 Benign prostatic hyperplasia without lower urinary tract symptoms; E78.5 Hyperlipidemia, unspecified; I65.23 Occlusion and stenosis of bilateral carotid arteries; I07.1 Rheumatic tricuspid insufficiency; Z79.82 Long term (current) use of aspirin; Z79.899 Other long term (current) drug therapy
CPT/HCPCS: 36415; 70450; 70551; 80048; 80053; 80061; 81001; 83090; 85025; 85610; 86780; 90471; 90662; 90670; 93005; 93306; G0008; G0009; J0360; J1650; S0028

== ENCOUNTER 2018-09-04 08:50 | Outpatient (CLI) | payer MEDICARE ==
--- NOTE | 2018-09-05 10:25 | RAD ---
MODIFIED BARIUM SWALLOW WITH SPEECH THERAPIST: DATE: 09/04/2018. HISTORY: An 88-year-old male with dysphagia following cerebral infarction, I69.391. FINDINGS: Premature free spillage with thin liquid. Laryngeal elevation, epiglottic inversion, and hyoid protractions are all good. Penetration observed with thin liquids, at least once. No barrett aspiration. Little residue in piriform sinuses and vall ecula. IMPRESSION: 1. At least 1 episode of penetration with thin liquids. 2. No major dysfunction observed otherwise. 3. See separate complete, detailed report by speech therapist. POS: [facility]
== END 2018-09-04 08:51 | disposition home or self-care (01) ==
PROVIDERS: ATTEND Physical Medicine & Rehabilitation
DX: I69.391 Dysphagia following cerebral infarction (principal)
CPT/HCPCS: 74230